=== PATIENT | female | born 2000 | race American Indian/Alaskan Native ===

== ENCOUNTER 2019-07-13 01:58 | Emergency (ER) | payer BC ==
--- NOTE | 2019-07-13 08:13 | Emergency Department Report ---
ED ENT HPI - General Chief complaint: Sore Throat Stated complaint: SHOULDER PAIN, SORE THROAT, LIGHT CHEST PAIN Time Seen by Provider: 07/13/19 07:49 Source: patient Mode of arrival: Ambulatory Limitations: No Limitations - History of Present Illness Initial comments: This is a 19-year-old female she reports going to the campus nurse for a bump on the anterior left neck. Patient states that nurse aspirated the bump with a needle and gave her a prescription for Bactrim DS. Patient states she stopped taking the bactrim because it irritated her throat. Patient now complaining of sore throat. She denies fever chills, cough,chest pain shortness of breath. Patient has no current medical problems MD complaint: sore throat -: days(s) (3) Location: throat Severity: mild Quality: aching Improves with: none Worsens with: swallowing, eating Associated Symptoms: pain with swallowing, sore throat. denies: fever, cough, gum swelling, toothache, hearing loss, discharge from ear, rhinorrhea - Related Data Allergies Allergy/AdvReac Type Severity Reaction Status Date / Time No Known Allergies Allergy Unverified 07/13/19 02:41 ED Dental HPI - General Chief complaint: Sore Throat Stated complaint: SHOULDER PAIN, SORE THROAT, LIGHT CHEST PAIN Time Seen by Provider: 07/13/19 07:49 Source: patient Mode of arrival: Ambulatory Limitations: No Limitations - Related Data Allergies Allergy/AdvReac Type Severity Reaction Status Date / Time No Known Allergies Allergy Unverified 07/13/19 02:41 ED Review of Systems ROS: Stated complaint: SHOULDER PAIN, SORE THROAT, LIGHT CHEST PAIN Other details as noted in HPI Constitutional: no symptoms reported. denies: chills, fever Eyes: denies: eye discharge ENT: throat pain. denies: ear pain, hearing loss, congestion Respiratory: denies: cough, shortness of breath, SOB with exertion Cardiovascular: denies: chest pain, palpitations, dyspnea on exertion Endocrine: denies: excessive sweating, intolerance to cold Gastrointestinal: denies: abdominal pain, nausea, vomiting ED Past Medical Hx - Past Medical History Previous Medical History?: No - Surgical History Past Surgical History?: No - Social History Smoking Status: Never Smoker Substance Use Type: None ED Physical Exam - General Limitations: No Limitations General appearance: alert, in no apparent distress - Head Head exam: Present: atraumatic - Eye Eye exam: Present: normal appearance. Absent: scleral icterus, conjunctival injection - ENT ENT exam: Present: mucous membranes moist, TM's normal bilaterally, other (mild erythrema and swelling to Uvula, no tonsilar swelling or exudate) - Neck Neck exam: Present: full ROM, other (small cystic lesion to anterior left neck, mobile, no swelling no tenderness). Absent: tenderness, lymphadenopathy - Respiratory Respiratory exam: Present: normal lung sounds bilaterally. Absent: respiratory distress, wheezes, rales, rhonchi - Cardiovascular Cardiovascular Exam: Present: regular rate, normal heart sounds - Extremities Exam Extremities exam: Present: normal inspection, normal capillary refill - Back Exam Back exam: Present: normal inspection - Neurological Exam Neurological exam: Present: alert, oriented X3 - Psychiatric Psychiatric exam: Present: normal affect - Skin Skin exam: Present: warm, dry, intact, normal color. Absent: rash ED Course Vital Signs 07/13/19 02:21 Temperature 98.0 F Pulse Rate 95 H Respiratory 18 Rate Blood Pressure 129/92 O2 Sat by Pulse 99 Oximetry ED Medical Decision Making - Medical Decision Making 19-year-old with sore throat rapid strep is negative. Patient to be discharged home doing warm salt water gargles Advil or tylenol for pain and to follow up with primary care physician if symptoms continues or worsens Critical Care Time: No Critical care attestation.: If time is entered above; I have spent that time in minutes in the direct care of this critically ill patient, excluding procedure time. ED Disposition Clinical Impression: Uvulitis Acute pharyngitis Qualifiers: Pharyngitis/tonsillitis etiology: unspecified etiology Qualified Code(s): J02.9 - Acute pharyngitis, unspecified Disposition: -01 TO HOME OR SELFCARE Is pt being admited?: No Does the pt Need Aspirin: No Condition: Stable Instructions: Pharyngitis (ED), Uvulitis (ED) Additional Instructions: Ok to continue with antibiotic as previously prescribed. Warm salt water gargles three times a day. Follow up with your doctor if no improvement or worsening symptoms. Ok to take advil or tylenol for pain as directed by package insert. Referrals: PRIMARY CARE, [Primary Care Provider] - 3-5 Days Time of Disposition: 09:36
[2019-07-13 09:41] VITALS: BP 130/90
== END 2019-07-13 09:40 | disposition home or self-care (01) ==
LOC: ED 01:58
DX: K12.2 Cellulitis and abscess of mouth (principal); J02.9 Acute pharyngitis, unspecified
CPT/HCPCS: 87116; 87430; 99283